=== PATIENT | female | born 1965 | race Caucasian/White ===

== ENCOUNTER 2024-05-15 09:07 | Outpatient (CLI) | payer OTHER, SELFPAY ==
--- NOTE | 2024-05-15 09:15 | CRLHL7_ITS ---
For Patients: As a result of the Century Cures Act, medical imaging exams and procedure reports are released immediately into your electronic medical record. You may view this report before your referring provider. If you have questions, please contact your health care provider. ULTRASOUND-GUIDED LEFT BREAST CYST ASPIRATION CLINICAL HISTORY: Symptomatic cyst. COMPARISON STUDIES: 05/02/2024. TECHNIQUE: Real-time ultrasound with image documentation was used for targeting the breast lesion. Ultrasound-guided cyst aspiration performed with 18 gauge needle. CONSENT and TIME OUT: The procedure, risks, and alternatives were explained to the patient and a consent was signed. [place] Protocol was followed including pre-procedure verification that relevant information/documentation was available, reviewed and properly matched to the patient; consent accurate and complete; and equipment and supplies available. Time Out was conducted just prior to starting procedure to verify the four required elements: patient identity, correct side/site marked (if applicable), procedure, relevant images/results properly labeled and displayed (if applicable). PROCEDURE: The patient was positioned supine on the ultrasound table. The breast was prepped with ChloraPrep. 5 cc of 1 percent lidocaine used for local anesthesia. 13 cc of cystic fluid was removed and discarded. No complications. LATERALITY: LEFT breast. LESION: Anechoic circumscribed cyst measuring 3 cm at 1 o`clock 2 cm from the nipple. IMPRESSION: Ultrasound-guided cyst aspiration. ACR not applicable Dictated by Castro Andrea MD @ 05/15/2024 12:38:30 PM [email or web address]/Dictated by: Castro Andrea MD @ 05/15/2024 12:38:00 PM (Electronically Signed)
== END 2024-05-15 09:08 | disposition home or self-care (01) ==
LOC: US 09:10
PROVIDERS: Visit Provider Family Medicine
DX: N60.02 Solitary cyst of left breast (principal)
CPT/HCPCS: 19000; 76942